=== PATIENT | female | born 1960 | race Caucasian/White ===

== ENCOUNTER 2016-08-02 15:38 | Emergency (ER) | payer BC ==
[~2016-08-02] VITALS: Ht 162.6 cm; Wt 82.1 kg
[~2016-08-02 15:38] MED LIST: BUPR-79 PO; CALC-51 PO; FLINTSTONES PO; LEVO1TAB50 PO; OXCA300T PO; TEMA30CA4 PO; VITAMIN-C PO
[2016-08-02 15:40] VITALS: TEMP 36.4; Ht 162.6 cm; Wt 82.1 kg
[2016-08-02] MEDS ORDERED: SODIUM CHLORIDE 0.9% 1000ML 1,000 ML IV STA (16:16)
[2016-08-02] MEDS ORDERED: GI COCKTAIL PO STA (16:16)
[2016-08-02] MEDS ORDERED: FENTANYL CITRATE INJ 50 MCG/1 ML 2 ML VIAL IV STA ×2 (16:16→18:39)
[2016-08-02] MEDS ORDERED: PEDICHW44 PO (16:26)
[2016-08-02] MEDS ORDERED: LEVO50TA PO (16:26)
[2016-08-02] MEDS ORDERED: OXCA300T4 PO (16:26)
[2016-08-02] MEDS ORDERED: OMEG10007 PO (16:26)
[2016-08-02] MEDS ORDERED: SALI0.6510 NAE (16:26)
[2016-08-02] MEDS ORDERED: [UNRECOGNIZED DRUG - OTHER] PO (16:26)
[2016-08-02] MEDS ORDERED: CALC-51 PO (16:26)
[2016-08-02] MEDS ORDERED: HYDR-5688 PO (16:26)
[2016-08-02] MEDS ORDERED: BUPR-79 PO (16:26)
[2016-08-02] MEDS ORDERED: FLUT0.15 NAE (16:26)
[2016-08-02] MEDS ORDERED: PROAIR INH (16:26)
[2016-08-02] MEDS ORDERED: LIDOCAINE HCL 2% VISC SOLN 20 ML UDC ONE (16:33)
[2016-08-02] MEDS ORDERED: ALUMINUM/MAGNESIUM SUSP 30 ML UDC ONE (16:33)
--- NOTE | 2016-08-02 16:36 | DIAGNOSTIC IMAGING REPORT ---
CHEST ONE VIEW PORTABLE CLINICAL HISTORY: Atypical chest pain COMPARISON STUDY: 09/15/2005 FINDINGS: There is mild elevation right hemidiaphragm. The heart is normal in size. There is no failure. There is no lobar consolidation. Increased markings the left medial lung base are likely atelectatic.[ IMPRESSION: Increased markings at the left medial lung base, likely atelectatic. Mild elevation of the right hemidiaphragm. No evidence of failure. No evidence of lobar consolidation. Electronically signed by: David Cotto M.D. 08/02/2016 4:35 PM Dictated Date/Time: 08/02/2016 4:30 PM
[2016-08-02 16:44] LABS: BASO % 0.1 %; BASO ABS # 0.01 K/uL (0-0.2); COMPLETE YES; EOS % 2.1 %; HEMATOCRIT 39.4 % (37-47); IG% 0.2 %; LYMPH % 17.9 %; LYMPH ABS # 1.64 K/uL (1.2-3.4); MEAN CELL VOLUME 91.4 fL (80-100); MEAN CORPUSCULAR HEMOGLOBIN 31.6 pg (25-34); MEAN CORPUSCULAR HGB CONC 34.5 g/dl (32-36); MEAN PLATELET VOLUME 9.7 fL (7.4-10.4); MONO % 7.6 %; NEUT % 72.1 %; PLATELET COUNT 227 K/uL (130-400); RED BLOOD COUNT 4.31 M/uL (4.2-5.4); WHITE BLOOD COUNT 9.17 K/uL (4.8-10.8)
[2016-08-02 16:58] LABS: ALT/SGPT 53 U/L (12-78); BLOOD UREA NITROGEN 19 mg/dl (7-18); CALCIUM 8.8 mg/dl (8.5-10.1); CARBON DIOXIDE 27 mmol/L (21-32); CHLORIDE 103 mmol/L (98-107); GLUCOSE 96 mg/dl (70-99); POTASSIUM 4.1 mmol/L (3.5-5.1); SODIUM 139 mmol/L (136-145)
[2016-08-02 17:03] LABS: ALKALINE PHOSPHATASE 111 U/L (45-117); AST/SGOT 89 U/L (15-37); CKMB/CK RATIO 0.9 (0-3.0); URINE APPEARANCE CLEAR (CLEAR); URINE BILIRUBIN NEG (NEG); URINE COLOR DK YELLOW; URINE EPITHELIAL CELL AUTO >30 /lpf (0-5); URINE NITRITE NEG (NEG); UROBILINOGEN NEG (NEG)
[2016-08-02 17:07] LABS: MANUAL MICROSCOPIC REQUIRED? NO; REVIEW REQ? YES
[2016-08-02 17:19] LABS: URINE MUCUS PRESENT (NONE PRSENT)
[2016-08-02 17:21] LABS: ZZUR CULT IF INDIC CLEAN CATCH YES
[2016-08-02] MEDS ORDERED: ONDANSETRON INJ 2 MG/ML 2 ML VIAL IV STA (18:39)
[2016-08-02] MEDS ORDERED: OXYC1TAB3 PO (18:41)
[2016-08-02] MEDS ORDERED: ONDA4TAB10 SL (18:41)
--- NOTE | 2016-08-02 18:42 | EMERGENCY ROOM VISIT NOTE ---
History Report prepared by Delroy: Elzbieta Coe Under the Supervision of: Dr. Alexis Raphael M.D. 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 She had a dental extraction earlier today. She came home afterwards and ate some food. She took her medications, but she was still in a lot of pain from the surgery. She took 2 Tylenol with codeine which she has not had problems with in the past. Soon after , she began experiencing chest pain in the middle of her chest which has spread up to her neck and into the middle of her back. She reports right sided abdominal pain and vomiting. She has a history of gastric bypass and cholecystectomy. She has not experienced any heartburn or reflux since her bypass. She denies any history of pancreatitis or blood clots. She denies any recent travel. Source of History: patient Onset: [employer] ROOM Position: chest (middle) Timing: other (persistent) Associated Symptoms: + abdominal pain, + back pain, + vomiting Review of Systems See HPI for pertinent positives & negatives. A total of 10 systems reviewed and were otherwise negative. Past Medical & Surgical Medical Problems: (1) Bronchitis (2) Hypertension (3) Kidney stones (4) Ulcer Family History Diabetes mellitus FHx: cancer FHx: heart disease Hypertension Kidney stones Social History Smoking Status: Former Smoker Alcohol Use: occasionally Marital Status: Housing Status: lives with family Occupation Status: employed Current/Historical Medications Scheduled Bupropion (Wellbutrin Sr), 150 MG PO DAILY Calcium Carbonate-Vitamin D (Calcium), 2 TABS PO DAILY Fish Oil ([place]-3), 1 CAP PO DAILY Fluticasone Propionate (Nasal) (Flonase Allergy Relief), 2 SPRAYS FABIÁN BID Levothyroxine Sodium (Synthroid), 50 MCG PO DAILY Ondasetron Odt (Zofran Odt), 4 MG SL Q6H Oxcarbazepine (Trileptal), 300 MG PO DAILY Pediatric Multiple Vitamins W/ (Flintstones Plus Iron), 1 TAB PO BID Saline ([place] Nasal [place]), 2 SPRAYS FABIÁN PRN [Ziacam], 1 TAB PO BID Scheduled PRN Hydrocodone/Acetaminophen 5MG/325MG ([place] 5MG/325MG), 1 TABLET PO Q6H PRN for Pain Oxycodone Immediate Rel Tab (Roxicodone Ir), 1-2 TAB PO Q4H PRN for Severe Pain [Proair], 2 PUFF INH Q4 PRN for SOB/Wheezing Allergies Coded Allergies: Zinc (Verified Allergy, Severe, GI SYMPTOMS, 08/02/16) Penicillins (Verified Allergy, Unknown, HIVES, 06/18/09) Meperidine (Verified Adverse Reaction, Severe, HEADACHES, 03/21/12) Morphine (Verified Adverse Reaction, Unknown, N/V, 06/18/09) Physical Exam Vital Signs Date Time Temp Pulse Resp B/P Pulse Ox O2 Delivery O2 Flow Rate FiO2 08/02/16 18:50 65 18 125/81 95 Room Air 08/02/16 17:27 64 08/02/16 17:09 62 16 113/75 95 Room Air 08/02/16 15:47 97 08/02/16 15:40 36.4 86 24 150/99 97 Room Air Physical Exam GENERAL: Patient is anxious appearing and in moderate distress. HEENT: No acute trauma, normocephalic atraumatic, mucous membranes moist, no nasal congestion, no scleral icterus. Swelling of right lower face. NECK: No stridor, no adenopathy, no meningismus, trachea is midline. LUNGS: No dyspnea. Clear to auscultation and equal bilaterally. No wheeze, no rhonchi. HEART: Regular rate and rhythm. No murmurs, rubs, gallops appreciated. ABDOMEN: Soft, bowel sounds positive, no masses appreciated, no peritonitis. Epigastric tenderness to palpation. BACK: No midline tenderness, no CVA tenderness EXTREMITIES: Normal motion all extremities, no cyanosis, no edema. NEUROLOGIC: Alert and oriented, no acute motor or sensory deficits, no focal weakness, cranial nerves grossly intact. SKIN: No rash, no jaundice, no diaphoresis. Medical Decision & Procedures ER Provider Diagnostic Interpretation: X ray results are stated below per my interpretation and the radiologist's interpretation. CHEST ONE VIEW PORTABLE CLINICAL HISTORY: Atypical chest pain COMPARISON STUDY: 09/15/2005 FINDINGS: There is mild elevation right hemidiaphragm. The heart is normal in size. There is no failure. There is no lobar consolidation. Increased markings the left medial lung base are likely atelectatic.[ IMPRESSION: Increased markings at the left medial lung base, likely atelectatic. Mild elevation of the right hemidiaphragm. No evidence of failure. No evidence of lobar consolidation. Electronically signed by: David Cotto M.D. 08/02/2016 4:35 PM Dictated Date/Time: 08/02/2016 4:30 PM Laboratory Results 08/02/16 16:30 Red Blood Count 4.31, Mean Corpuscular Volume 91.4, Mean Corpuscular Hemoglobin 31.6, Mean Corpuscular Hemoglobin Concent 34.5, Mean Platelet Volume 9.7, Neutrophils (%) (Auto) 72.1, Lymphocytes (%) (Auto) 17.9, Monocytes (%) (Auto) 7.6, Eosinophils (%) (Auto) 2.1, Basophils (%) (Auto) 0.1, Neutrophils # (Auto) 6.61, Lymphocytes # (Auto) 1.64, Monocytes # (Auto) 0.70, Eosinophils # (Auto) 0.19, Basophils # (Auto) 0.01 08/02/16 16:30 Test 08/02/16 16:30 08/02/16 18:06 White Blood Count 9.17 K/uL (4.8-10.8) Red Blood Count 4.31 M/uL (4.2-5.4) Hemoglobin 13.6 g/dL (12.0-16.0) Hematocrit 39.4 % (37-47) Mean Corpuscular Volume 91.4 fL (80-100) Mean Corpuscular Hemoglobin 31.6 pg (25-34) Mean Corpuscular Hemoglobin Concent 34.5 g/dl (32-36) Platelet Count 227 K/uL (130-400) Mean Platelet Volume 9.7 fL (7.4-10.4) Neutrophils (%) (Auto) 72.1 % Lymphocytes (%) (Auto) 17.9 % Monocytes (%) (Auto) 7.6 % Eosinophils (%) (Auto) 2.1 % Basophils (%) (Auto) 0.1 % Neutrophils # (Auto) 6.61 K/uL (1.4-6.5) Lymphocytes # (Auto) 1.64 K/uL (1.2-3.4) Monocytes # (Auto) 0.70 K/uL (0.11-0.59) Eosinophils # (Auto) 0.19 K/uL (0-0.5) Basophils # (Auto) 0.01 K/uL (0-0.2) RDW Standard Deviation 42.5 fL (36.4-46.3) RDW Coefficient of Variation 12.6 % (11.5-14.5) Immature Granulocyte % (Auto) 0.2 % Immature Granulocyte # (Auto) 0.02 K/uL (0.00-0.02) Urine Color DK YELLOW Urine Appearance CLEAR (CLEAR) Urine pH 5.0 (4.5-7.5) Urine Specific [place] 1.030 (1.000-1.030) Urine Protein NEG (NEG) Urine Glucose (UA) NEG (NEG) Urine Ketones TRACE (NEG) Urine Occult Blood NEG (NEG) Urine Nitrite NEG (NEG) Urine Bilirubin NEG (NEG) Urine Urobilinogen NEG (NEG) Urine Leukocyte Esterase SMALL (NEG) Urine WBC (Auto) 1-5 /hpf (0-5) Urine RBC (Auto) 0-4 /hpf (0-4) Urine Hyaline Casts (Auto) 1-5 /lpf (0-5) Urine Epithelial Cells (Auto) >30 /lpf (0-5) Urine Bacteria (Auto) 1+ (NEG) Urine Mucus PRESENT (NONE PRSENT) Anion Gap 9.0 mmol/L (3-11) Est Creatinine Clear Calc Drug Dose 79.5 ml/min Estimated GFR () 94.2 Estimated GFR (Non- 81.3 BUN/Creatinine Ratio 24.0 (10-20) Calcium Level 8.8 mg/dl (8.5-10.1) Total Bilirubin 0.4 mg/dl (0.2-1) Direct Bilirubin < 0.1 mg/dl (0-0.2) Aspartate Amino Transf (AST/SGOT) 89 U/L (15-37) Alanine Aminotransferase (ALT/SGPT) 53 U/L (12-78) Alkaline Phosphatase 111 U/L (45-117) Total Creatine Kinase 111 U/L (26-192) Creatine Kinase MB 1.0 ng/ml (0.5-3.6) Creatine Kinase MB Ratio 0.9 (0-3.0) Troponin I < 0.015 ng/ml (0-0.045) Total Protein 6.7 gm/dl (6.4-8.2) Albumin 3.4 gm/dl (3.4-5.0) Lipase 241 U/L (73-393) Bedside Troponin I 0.000 ng/ml (0-0.045) Laboratory results as reviewed by me. Medications Administered Medications (Trade) Dose Ordered Sig/José Luis Route Start Time Stop Time Status Last Admin Dose Admin Fentanyl Citrate 50 mcg 50 mcg NOW STAT IV 08/02/16 16:16 08/02/16 16:18 DC 08/02/16 17:08 50 MCG Sodium Chloride (Nss 1000ml) 1,000 ml @ 999 mls/hr Q1H1M STAT IV 08/02/16 16:16 08/02/16 17:16 DC 08/02/16 16:16 999 MLS/HR Lidocaine HCl (Viscous Lidocaine 2% Soln) 20 ml STK-MED ONCE .ROUTE 08/02/16 16:33 08/02/16 16:37 DC 08/02/16 16:38 20 ML Al Hydroxide/Mg Hydroxide (Maalox Susp) 30 ml STK-MED ONCE .ROUTE 08/02/16 16:33 08/02/16 16:37 DC 08/02/16 16:38 30 ML Ondansetron HCl (Zofran Inj) 4 mg NOW STAT IV 08/02/16 18:39 08/02/16 18:40 DC 08/02/16 18:49 4 MG Fentanyl Citrate (Fentanyl Inj) 50 mcg NOW STAT IV 08/02/16 18:39 08/02/16 18:40 DC 08/02/16 18:49 50 MCG Oxycodone HCl (Roxicodone Immediate Rel 5MG Home Pack) 1 homepack UD ONCE PO 08/02/16 18:45 08/02/16 18:46 DC 08/02/16 19:20 1 HOMEPACK Ondansetron HCl (ZOFRAN ODT 4MG Home Pack) 1 homepack UD ONCE PO 08/02/16 18:45 08/02/16 18:46 DC 08/02/16 19:21 1 HOMEPACK ECG Indication: chest pain Rate (beats per minute): 61 Rhythm: normal sinus Findings: no acute ischemic change, no ectopy ED Course 161: The patient was evaluated in room C9. A complete history and physical exam was performed. 1616: NSS 1000 ml @ 999 mls/hr IV, Fentanyl Inj 50 mcg IV, Gi cocktail 24 ml PO. 1633: Maalox Susp 30 ml PO, Lidocaine HCl 20 ml IV. 1732: I reevaluated the patient. She is feeling great. She is not experiencing any further pain. She is agreeable to waiting for repeat cardiac enzymes. 1837: I reevaluated the patient. She is feeling much better. She is experiencing some facial pain and requests some medications. I discussed results and discharge instructions: she verbalized understanding and agreement. The patient is ready for discharge. 1839: Fentanyl Inj 50 mcg IV, Zofran Inj 4 mg IV. 1845: Ondansetron HCl 1 homepack PO, Oxycodone HCl 1 homepack PO. Medical Decision Differential: Cholecystitis, Gallbladder disfunction, Hepatic Disfunction, Gastritis/PUD, Pancreatitis, ACS, Aortic Pathology, amongst other pathologies entertained. 56 yr old female arrives with complaint of chest pain going through to back after vomiting. Resolved with GI cocktail and mild pain meds. No further chest pain nor symptoms. CXR clear, EKG normal, trop negative. Labs look good. Repeat trop negative. She has no further pain. I do not feel this is dissection nor PE. She has some pain right face understanably thus given IV pain meds prior to taking IV out. Home with different meds and restrictions per them. Feeling well and comfortable with discharge. Stressed PCP follow up. I do not feel this is acs, dissection, pe. Likely esophagitis related and thus discussed antiacids and bland diet. Impression Primary Impression: Substernal precordial chest pain Additional Impression: Epigastric abdominal pain Scribe Attestation The scribe's documentation has been prepared under my direction and personally reviewed by me in its entirety. I confirm that the note above accurately reflects all work, treatment, procedures, and medical decision making performed by me. Departure Information Dispostion Home / Self-Care Prescriptions Ondasetron Odt (ZOFRAN ODT) 4 Mg Tab 4 MG SL Q6H for Nausea, #15 TAB Prov: Alexis Raphael M.D. 08/02/16 Oxycodone Immediate Rel Tab (ROXICODONE IR) 5 Mg Tab 1-2 TAB PO Q4H Y for Severe Pain, #15 TAB Prov: Alexis Raphael M.D. 08/02/16 Referrals Sky Porras D.OMichelle (PCP) Patient Instructions ED Epigastric Pain [facility] [place] [facility] Additional Instructions You have received a narcotic pain medication prescription. These medications may cause drowsiness and should not be used with other sedative medications. Do not drive, drink alcohol, perform dangerous activities, nor make important decisions after taking these medications. alf use or inappropriate use may lead to addiction. Problem Qualifiers
[2016-08-02] MEDS ORDERED: OXYCODONE IR HOME PACK PO ONE (18:45)
[2016-08-02] MEDS ORDERED: ONDANSETRON HOME PACK 4MG OD TAB PO ONE (18:45)
[2016-08-02 18:50] VITALS: BP 125/81; PULSE 65; O2SAT 95
== END 2016-08-02 19:20 | disposition home or self-care (01) ==
LOC: C.EDB 15:38 → C.EDC 19:20
DX: R07.2 Precordial pain (principal); R10.13 Epigastric pain; I10 Essential (primary) hypertension; Z98.84 Bariatric surgery status; Z90.49 Acquired absence of other specified parts of digestive tract; Z87.442 Personal history of urinary calculi; Z87.19 Personal history of other diseases of the digestive system; Z87.891 Personal history of nicotine dependence; Z79.899 Other long term (current) drug therapy; Z88.0 Allergy status to penicillin; Z88.5 Allergy status to narcotic agent; Z88.8 Allergy status to other drugs, medicaments and biological substances; Z83.3 Family history of diabetes mellitus; Z80.9 Family history of malignant neoplasm, unspecified; Z82.49 Family history of ischemic heart disease and other diseases of the circulatory system; Z84.1 Family history of disorders of kidney and ureter

== ENCOUNTER → 2016-11-29 | Outpatient (CLI) | payer BC ==
[~2016-11-29] MED LIST changes: -FLINTSTONES PO; +FLUT0.15 NAE; +HYDR-5688 PO; -LEVO1TAB50 PO; +LEVO50TA PO; +OMEG10007 PO; +ONDA4TAB10 SL; -OXCA300T PO; +OXCA300T4 PO; +OXYC1TAB3 PO; +PEDICHW44 PO; +PROAIR INH; +SALI0.6510 NAE; -TEMA30CA4 PO; -VITAMIN-C PO; +[UNRECOGNIZED DRUG - OTHER] PO
--- NOTE | 2016-11-30 12:10 | MAMMOGRAPHY REPORT ---
BILATERAL DIGITAL SCREENING MAMMOGRAM TOMOSYNTHESIS WITH CAD: 11/29/2016 CLINICAL HISTORY: Routine screening. Patient has no complaints. TECHNIQUE: Breast tomosynthesis in addition to standard 2D mammography was performed. Current study was also evaluated with a Computer Aided Detection (CAD) system. COMPARISON: Comparison is made to exams dated: 09/21/2015 mammogram, 09/15/2014 mammogram, 09/09/2013 ma mmogram, 09/03/2012 mammogram, 09/01/2011 mammogram, and 08/25/2010 mammogram - [facility]ter. BREAST COMPOSITION: The tissue of both breasts is almost entirely fatty. FINDINGS: There is evidence of prior reduction mammoplasty. No suspicious mass, architectural distor tion or cluster of microcalcifications is seen. IMPRESSION: ACR BI-RADS CATEGORY 1: NEGATIVE There is no mammographic evidence of malignancy. A 1 year screening mammogram is recommended. The pa tient will receive written notification of the results. Approximately 10% of breast cancers are not detected with mammography. A negative mammographic report should not delay biopsy if a clinically suggestive mass is present. Lucretia Vizcaino M.D. ay/:11/29/2016 16:21:42 Coil Winder Strap: Fabienne MINER(Morris)(Jacquie)(BD), [facility] letter sent: Normal 1/2 BI-RADS Code: ACR BI-RADS Category 1: Negative
== END | disposition home or self-care (01) ==
LOC: C.MAMM 07:05
PROVIDERS: ATTEND Family Medicine
DX: Z12.31 Encounter for screening mammogram for malignant neoplasm of breast (principal)

== ENCOUNTER 2017-06-23 00:10 | Emergency (ER) | payer BC ==
[~2017-06-23] VITALS: Ht 162.6 cm; Wt 79.7 kg
[~2017-06-23 00:10] MED LIST changes: -ONDA4TAB10 SL; -OXYC1TAB3 PO
[2017-06-23 00:31] VITALS: TEMP 36.3; Ht 162.6 cm; Wt 79.7 kg
[2017-06-23] MEDS ORDERED: OXYCODONE HCL IR 5 MG TAB (IMMEDIATE RELEASE) PO STA (00:40)
[2017-06-23] MEDS ORDERED: OXYCODONE IR HOME PACK PO ONE (01:45)
[2017-06-23] MEDS ORDERED: OXYC1TAB3 PO (01:45)
[2017-06-23 02:07] VITALS: BP 137/85; PULSE 64; O2SAT 99
--- NOTE | 2017-06-23 04:13 | EMERGENCY ROOM VISIT NOTE ---
ED Visit Note First contact with patient: 00:35 CHIEF COMPLAINT: Wrist injury HISTORY OF PRESENT ILLNESS: This 57-year-old patient presents to the emergency department with her complaining of pain in the left wrist after falling on her wrist. The patient is barely able to move their wrist. The patient states the pain is throbbing and 7/10. No laceration, no weakness. No numbness or tingling. The patient denies any other injury. The patient is able to move their fingers and elbow without difficulty. The patient has not had a previous fracture to this wrist. The patient has taken nothing for the pain. Patient follows Dr. Tilley. REVIEW OF SYSTEMS: A 6 system review of systems was performed with positives and pertinent negatives in the HPI. ALLERGIES: Morphine, reviewed MEDICATIONS: Reviewed PMH:hypertension, kidney stones SOCIAL HISTORY: No drug use PHYSICAL EXAM: Vital Signs: Reviewed Nurse's notes, vital signs stable. GENERAL : Pleasant female, in no acute distress, but appears to be in pain, well- developed, well-neurished. NEURO: Alert and oriented to person place and time. Normal sensation to light and sharp touch. MUSCULOSKELETAL: There is no deformity of the left wrist. There is tenderness and edema over distal radius. There is snuff box tenderness. Range of motion is limited secondary to pain. There is no tenderness of the elbow, hand or fingers. 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 Radial pulse 2+. SKIN: Normal and intact. The hand is warm and well perfused with capillary refill less than 2 seconds. EMERGENCY DEPARTMENT COURSE: I examined the patient. An X-ray of the left wrist was reviewed by myself and my attending and showed distal radius fracture. A volar splint was placed under my direction and the position was satisfactory. Neurovascular status rechecked and intact. Patient was advised to follow-up with her orthopedist on Sunday for definitive care here in the ER sooner for severe pain, numbness, tingling, worsening signs or symptoms or as needed. The patient was discharged home in good condition. Differential diagnosis includes sprain, strain, fracture, dislocation and other etiologies were considered. DIAGNOSIS: Left wrist fracture DISCHARGE INSTRUCTIONS & TREATMENT: As below Current/Historical Medications Scheduled Bupropion (Wellbutrin Sr), 150 MG PO DAILY Calcium Carbonate-Vitamin D (Calcium), 2 TABS PO DAILY Fish Oil ([place]-3), 1 CAP PO DAILY Fluticasone Propionate (Nasal) (Flonase Allergy Relief), 2 SPRAYS FABIÁN BID Levothyroxine Sodium (Synthroid), 50 MCG PO DAILY Oxcarbazepine (Trileptal), 300 MG PO DAILY Pediatric Multiple Vitamins W/ (Flintstones Plus Iron), 1 TAB PO BID Saline ([place] Nasal [place]), 2 SPRAYS FABIÁN PRN [Ziacam], 1 TAB PO BID Scheduled PRN Hydrocodone/Acetaminophen 5MG/325MG ([place] 5MG/325MG), 1 TABLET PO Q6H PRN for Pain Oxycodone Immediate Rel Tab (Roxicodone Ir), 1-2 TAB PO Q4H PRN for Severe Pain [Proair], 2 PUFF INH Q4 PRN for SOB/Wheezing Allergies Coded Allergies: Zinc (Verified Allergy, Severe, GI SYMPTOMS, 08/02/16) Penicillins (Verified Allergy, Unknown, HIVES, 06/18/09) Meperidine (Verified Adverse Reaction, Severe, HEADACHES, 03/21/12) Morphine (Verified Adverse Reaction, Unknown, N/V, 06/18/09) Vital Signs Date Time Temp Pulse Resp B/P (MAP) Pulse Ox O2 Delivery O2 Flow Rate FiO2 06/23/17 02:07 64 18 137/85 99 Room Air 06/23/17 00:31 36.3 75 18 130/86 98 Room Air Medications Administered Medications (Trade) Dose Ordered Sig/José Luis Route Start Time Stop Time Status Last Admin Dose Admin Oxycodone HCl (Roxicodone Immediate Rel Tab) 5 mg NOW STAT PO 06/23/17 00:40 06/23/17 00:41 DC 06/23/17 00:50 5 MG Departure Information Impression Primary Impression: Wrist fracture, left Dispostion Home / Self-Care Condition GOOD Prescriptions Oxycodone Immediate Rel Tab (ROXICODONE IR) 5 Mg Tab 1-2 TAB PO Q4H Y for Severe Pain, #15 TAB initial course Prov: Marni Arora .EVELYN 06/23/17 Forms WORK / SCHOOL INSTRUCTIONS, HOME CARE DOCUMENTATION FORM, IMPORTANT VISIT INFORMATION Patient Instructions Fx Wrist Tx, [facility] Additional Instructions DO NOT drive, drink alcohol, operate machinery, or perform dangerous activities today. You were given medications in the ER that can affect your ability to safely function or operate a vehicle. Oxycodone (OxyIR) 5mg: Take 1-2 pills every four hours for breakthrough pain. Avoid alcohol, operating machinery or dangerous equipment, working on ladders or roofs, DRIVING, or situations where being under the influence may be dangerous. It is recommended to use an [id number] stool softener such as Colace, 100mg twice daily while taking this medication to avoid constipation. Ibuprofen(Motrin, Advil) may be used for fever or pain. Use 600mg every six hours as needed. Take with food. Avoid using more than 2400mg in a 24 hour period. Do not use 2400mg per day for more than three consecutive days without physician direction. Prolonged inappropriate use can lead to stomach upset or ulcers. This medication can be taken if you need to drive, work, or perform activities which may be dangerous when taking narcotic pain medication. (AND/OR) Acetaminophen(Tylenol) may be used for fever or pain. Use 1000mg every six hours as needed. Avoid using more than 3000mg in a 24 hour period. This medication can be taken if you need to drive, work, or perform activities which may be dangerous when taking narcotic pain medication. Ice compresses for 20 minutes at a time four times daily for 2-3 days. Rest and elevate your injury. Do not get the splint wet. If your splint feels excessively tight, you have worsening pain, develop numbness or tingling, or your digits appear blue, loosen the steve wrap. Then reapply the steve wrap gently without removing the splint. If your symptoms are not quickly relieved return to the ER for re- evaluation. Continue current medications. Return to the ER immediately for any numbness, tingling, severe pain, extreme swelling in the extremity or as needed. Call your Orthopedics tomorrow to arrange follow up for your injury.
--- NOTE | 2017-06-23 08:36 | DIAGNOSTIC IMAGING REPORT ---
L WRIST W/NAVICULAR MIN 3 VIEWS CLINICAL HISTORY: 57 years-old Female presenting with fall, pain. TECHNIQUE: Frontal, bilateral oblique, lateral, and scaphoid views of the left wrist were obtained. COMPARISON: None. FINDINGS: Impacted fracture of the distal radial metaphysis. No significant angulation at the fracture plane. The fracture is predominantly impacted along the dorsal aspect. Radiocarpal articulations preserved. The fracture does not appear to extend into the joint. Osteopenia likely present. No scaphoid fracture is radiographically apparent. No soft tissue abnormality. IMPRESSION: 1. Impacted extra-articular fracture of the distal radial metaphysis without significant angulation (Colles' type fracture). 2. Suspected underlying osteopenia. Electronically signed by: Kris Renner M.D. 06/23/2017 8:34 AM Dictated Date/Time: 06/23/2017 8:33 AM
== END 2017-06-23 02:08 | disposition home or self-care (01) ==
LOC: C.EDB 00:12 → C.EDC 02:08
DX: S52.552A Other extraarticular fracture of lower end of left radius, initial encounter for closed fracture (principal); W19.XXXA Unspecified fall, initial encounter; Z88.8 Allergy status to other drugs, medicaments and biological substances

== ENCOUNTER → 2017-06-25 | Outpatient (CLI) | payer BC ==
[~2017-06-25] MED LIST changes: +OXYC1TAB3 PO
== END | disposition home or self-care (01) ==
LOC: C.CPL 13:20
PROVIDERS: ATTEND Orthopaedic Surgery
DX: S52.509A Unspecified fracture of the lower end of unspecified radius, initial encounter for closed fracture (principal); X58.XXXA Exposure to other specified factors, initial encounter

== ENCOUNTER → 2017-12-05 | Outpatient (CLI) | payer BC ==
[~2017-12-05] MED LIST changes: +OXYC-737 PO; -OXYC1TAB3 PO
--- NOTE | 2017-12-06 07:55 | MAMMOGRAPHY REPORT ---
BILATERAL DIGITAL SCREENING MAMMOGRAM TOMOSYNTHESIS WITH CAD: 12/05/2017 CLINICAL HISTORY: Routine screening. Patient has no complaints. TECHNIQUE: The study was acquired using full field digital technology and interpreted from soft copy. Breast tomosynthesis in addition to standard 2D mammography was performed. Current study was also ev aluated with a Computer Aided Detection (CAD) system. COMPARISON: Comparison is made to exams dated: 11/29/2016 mammogram, 09/21/2015 mammogram, 09/15/2014 ma mmogram, 09/09/2013 mammogram, 09/03/2012 mammogram, and 09/01/2011 mammogram - [facility] nter. BREAST COMPOSITION: The tissue of both breasts is almost entirely fatty. FINDINGS: Status post bilateral reduction mammoplasty. There are stable nodular asymmetries in the u pper outer posterior left breast. No suspicious mass, architectural distortion or cluster of microcal cifications is seen. IMPRESSION: ACR BI-RADS CATEGORY 1: NEGATIVE There is no mammographic evidence of malignancy. A 1 year screening mammogram is recommended.( 019) The patient will receive written notification of the results. Some breast cancers are not detected with mammography. A negative mammographic report should not souleymane y biopsy if a clinically suggestive mass is present. Lucretia Vizcaino M.D. ay/:12/05/2017 07:43:26 [place] Closer: RT Myriam(Morris)(M), [facility] letter sent: Normal 1/2 BI-RADS Code: ACR BI-RADS Category 1: Negative
== END | disposition home or self-care (01) ==
LOC: C.MAMM 07:10
PROVIDERS: ATTEND Family Medicine
DX: Z12.31 Encounter for screening mammogram for malignant neoplasm of breast (principal)